=== PATIENT | female | born 1955 | race Caucasian/White ===

== ENCOUNTER 2020-12-05 06:34 | Day surgery (SDC) | payer OTHER ==
[~2020-12-05 06:34] MED LIST: Lactated Ringers 1,000 ML IV SCH
[2020-12-05] MEDS ORDERED: Lidocaine 2% 5 ML SDV ONE (06:48)
[2020-12-05] MEDS ORDERED: Glycopyrrolate 0.2 MG/ML SDV ONE (06:48)
[2020-12-05] MEDS ORDERED: Propofol 200 MG/20 ML SDV ONE ×2 (06:48→08:42)
[2020-12-05] MEDS ORDERED: Midazolam 1 MG/ML 2 ML SDV ONE (06:48)
[2020-12-05] MEDS ORDERED: fentaNYL 100 MCG/2 ML SDV ONE (06:48)
--- NOTE | 2020-12-05 07:11 | PCM.PREANE ---
Preanesthetic Assessment - Anesthesia/Transfusion/Family Hx Type of Anesthesia Reaction: Other (see below) (delayed emergence) Family History of Anesthesia Reaction: No Transfusion History: No Prior Transfusion(s) - Review of Systems General: No Symptoms Pulmonary: No Symptoms Cardiovascular: No Symptoms Gastrointestinal: No Symptoms Neurological: No Symptoms Other: Reports: None - Physical Assessment NPO Status Date: 12/12/20 NPO Status Time: 05:00 Height: 1.65 m Weight: 88.904 kg ASA Class: 2E Mental Status: Alert & Oriented x3 Airway Class: Mallampati = 2 Dentition: Reports: Edentulous Thyro-Mental Finger Breadths: 3 Mouth Opening Finger Breadths: 3 ROM/Head Extension: Full Lungs: Clear to Auscultation, Normal Respiratory Effort Cardiovascular: Regular Rate, Regular Rhythm - Allergies Allergies/Adverse Reactions: Allergies Allergy/AdvReac Type Severity Reaction Status Date / Time morphine Allergy Nausea and Verified 12/01/20 12:14 Vomiting - Blood Blood Available: No - Acknowledgements Anesthesia Type Planned: MAC (The patient understands and accepts the anesthetic risks and benefits of MAC. All questions answered. Consent signed. ) Pt an Appropriate Candidate for the Planned Anesthesia: Yes Alternatives and Risks of Anesthesia Discussed w Pt/Guardian: Yes Pt/Guardian Understands and Agrees with Anesthesia Plan: Yes PreAnesthesia Questionnaire HEENT History: Reports: Other (See Below) Other HEENT History: reading glasses, top and bottom denture Cardiovascular History: Reports: High Cholesterol, Hypertension Respiratory History: Reports: COPD (used inhaler 2 days ago. mild copd), Other (See Below) (USES OXYGEN AT BEDTIME since recovery from COVID 19) Gastrointestinal History: Reports: Colon Polyp, GERD (uncontrolled-having an egd to evaluate this today.), Hepatitis Other Gastrointestinal History: occasional diarrhea, hx hepatitis C, 25 years ago - states she was told that her body rid itself of it and she did not need medication Genitourinary History: Reports: Renal Calculus [employer] History: Reports: Musculoskeletal History: Reports: Arthritis, Fracture Other Musculoskeletal History: hx fx arm Neurological History: Reports: CVA, Neuropathy, Peripheral Other Neuro History: stroke 2019 years ago, affected her vision & balance, "better now" , migraines following her stroke, but states is better now also Psychiatric History: Reports: Anxiety, Depression Endocrine/Metabolic History: Reports: Obesity/BMI 30+ (bmi 32) Hematologic History: Reports: None Immunologic History: Reports: None Oncologic (Cancer) History: Reports: None Dermatologic History: Reports: None - Infectious Disease History Infectious Disease History: Reports: Other (See Below) Other Infectious Disease History: positive for COVID on Aug 03, 2020, was hospitalized x23 days - Past Surgical History Head Surgeries/Procedures: Reports: None HEENT Surgical History: Reports: None Cardiovascular Surgical History: Reports: None Respiratory Surgical History: Reports: None GI Surgical History: Reports: Cholecystectomy, Colonoscopy Female Surgical History: Reports: Tubal Ligation Endocrine Surgical History: Reports: None Neurological Surgical History: Reports: None Musculoskeletal Surgical History: Reports: Other (See Below) Other Musculoskeletal Surgeries/Procedures:: excision ganglion cyst-left wrist Oncologic Surgical History: Reports: None Dermatological Surgical History: Reports: None - SUBSTANCE USE Tobacco Use Status *Q: Former Tobacco User (quit 2 years ago.) Tobacco Use Within Last Twelve Months: No Days Per Week of Alcohol Use: 0 Recreational Drug Use History: No - HOME MEDS Home Medications: Home Meds Benzonatate [Tessalon Perle] 100 mg PO TID PRN 12/01/20 [History] Cholecalciferol (Vitamin D3) [Vitamin D3] 2,000 units PO DAILY 12/01/20 [History] Esomeprazole Magnesium 40 mg PO BEDTIME 12/01/20 [History] FLUoxetine HCl [Fluoxetine HCl] 40 mg PO DAILY 12/01/20 [History] Ferrous Sulfate 325 mg PO DAILY 12/01/20 [History] Gabapentin [Neurontin] 300 mg PO BEDTIME PRN 12/01/20 [History] LORazepam [Lorazepam] 0.5 mg PO ASDIRECTED PRN 12/01/20 [History] Losartan Potassium 25 mg PO DAILY 12/01/20 [History] Metaxalone 800 mg PO DAILY 12/01/20 [History] Multivit-Min/FA/Lycopen/Lutein [Centrum Silver Tablet] 1 tab PO DAILY 12/01/20 [History] Potassium Chloride 10 meq PO DAILY 12/01/20 [History] QUEtiapine Fumarate [Seroquel] 25 mg PO BEDTIME 12/01/20 [History] Topiramate 50 mg PO BEDTIME 12/01/20 [History] amLODIPine [Norvasc] 5 mg PO DAILY 12/01/20 [History] atorvaSTATin Calcium [Atorvastatin Calcium] 40 mg PO DAILY 12/01/20 [History]
[2020-12-05] MEDS ORDERED: fentaNYL 100 MCG/2 ML SDV IVPUSH PRN (08:22)
[2020-12-05] MEDS ORDERED: Atropine 0.1 MG/ML 10 ML Syringe IVPUSH PRN ×2 (08:22)
[2020-12-05] MEDS ORDERED: EPINEPHrine 1:10,000 1 MG/10 ML Syringe IVPUSH PRN (08:22)
[2020-12-05] MEDS ORDERED: 50% Dextrose in Water 50 ML Syringe IVPUSH PRN (08:22)
[2020-12-05] MEDS ORDERED: Naloxone 0.4 MG/ML Syringe IVPUSH PRN (08:22)
[2020-12-05] MEDS ORDERED: Albuterol 0.083% 2.5 MG/3 ML Neb Soln NEB PRN (08:22)
[2020-12-05] MEDS ORDERED: Lactated Ringers 1,000 ML IV SCH (09:00)
--- NOTE | 2020-12-05 09:02 | PCM.OPNOTE ---
- General Post-Op/Procedure Note Date of Surgery/Procedure: 12/05/20 Operative Procedure(s): Esophagogastroduodenoscopy with gastric biopsy. Colonoscopy with snare, and cold polypectomies from the sigmoid colon and rectum. Pre Op Diagnosis: Dysphagia. Personal history of colon polyps. Post-Op Diagnosis: Moderate chronic gastritis. Sigmoid and rectal polyps. Anesthesia Technique: MAC (ASA II) Primary Surgeon: Florentino Lemus Condition: Good Free Text/Narrative:: DICTATION [id number] CPT CODE [id number]
--- NOTE | 2020-12-05 09:20 | PCM.POSTAN ---
POST ANESTHESIA ASSESSMENT - VITAL SIGNS Vital Signs: Last Vital Signs Temp 36.1 C 12/05/20 07:27 Pulse 71 12/05/20 09:11 Resp 18 12/05/20 09:11 BP 132/81 12/05/20 09:11 Pulse Ox 95 12/05/20 09:11 - RESPIRATORY Respiratory Status: Respiratory Rate WNL - CARDIOVASCULAR CV Status: Pulse Rate WNL - GASTROINTESTINAL GI Status: No Symptoms - POST OP HYDRATION Hydration Status: Adequate & Stable
--- NOTE | 2020-12-05 09:35 | OR ---
SURGEON: Florentino Lemus M.D. DATE OF PROCEDURE: 12/05/2020 OPERATION PERFORMED: Colonoscopy with snare sigmoid colon polypectomy and sigmoid and rectal cold polypectomy. PRIMARY SURGEON: Florentino Lemus M.D. ANESTHESIA: MAC. ASA CLASSIFICATION: III. PREOPERATIVE DIAGNOSIS: Personal history of colon polyps. POSTOPERATIVE DIAGNOSIS: Sigmoid and rectal polyps. DESCRIPTION OF PROCEDURE: With the patient having completed upper GI endoscopy, she was maintained in the left lateral decubitus position. The colonoscope was inserted into the rectum and advanced with minimal difficulty to the cecum. The cecum was identified by internal landmarks and external pressure. The colonoscope was retroflexed to visualize the ascending colon from below, then straightened, and slowly withdrawn. The cecum, ascending colon, hepatic flexure, transverse colon, splenic flexure, and descending colon were very well visualized. No tumors, polyps, diverticula, or angiodysplastic changes were noted anywhere in that segment of the colon. The patient did have a couple of small polyps in the sigmoid colon that were removed with the cold biopsy forceps. A larger polyp required snare polypectomy from the proximal rectum. The polyp was large enough that the scope had to be removed to recover the polyp. The scope was then reinserted to just above the polypectomy site. The polypectomy site was noted to be dry. A fourth small polyp was encountered in the rectum and also removed with cold biopsy forceps. Once the colonoscope was withdrawn to the distal rectum, it was retroflexed to visualize the anal orifice from above. No tumors, polyps, or acute hemorrhoidal changes were noted. The colonoscope was then straightened, the rectum aspirated, and the colonoscope removed. The patient tolerated the procedure well and was taken to recovery room in stable condition. JAYCEE / MARCELINO /[id number]
--- NOTE | 2020-12-05 09:41 | OR ---
SURGEON: Florentino Lemus M.D. DATE OF PROCEDURE: 12/05/2020 OPERATION PERFORMED: Esophagogastroduodenoscopy with gastric biopsy. ANESTHESIA: MAC. ASA CLASSIFICATION: III. PREOPERATIVE DIAGNOSIS: Dysphagia. POSTOPERATIVE DIAGNOSIS: Moderate chronic gastritis without ulceration. DESCRIPTION OF PROCEDURE: The patient was taken to the endoscopy room, positioned on the endoscopy table in the left lateral decubitus position. Time-out was called for appropriate identification of the patient and procedure. Monitored anesthesia care was provided. The bite block was placed between the patient's teeth. The gastroscope was inserted through the bite block and advanced without difficulty through the esophagus and stomach into the duodenum where examination was now carried out in a retrograde fashion. The duodenum showed no acute inflammatory changes or ulcerations. The stomach did show [id number] gastritis. No ulcerations were noted. Antral biopsies were obtained to look for the presence of Helicobacter pylori. The gastroscope was retroflexed to visualize the proximal stomach. No mid or proximal lesions were identified. The greater curvature and lesser curvatures were well visualized. Again, no tumors, polyps, or ulcerations were noted. The GE junction was well defined and showed no acute inflammatory changes or ulcerations. The esophagus demonstrated good contractility. No mid or proximal lesions were identified and there was no stricture. I did not see any significant spasm. The vocal cords were briefly visualized as the scope was withdrawn and noted to move symmetrically. The gastroscope was then removed with the patient having tolerated this portion of the procedure well. Following colonoscopy, she was taken to recovery room in stable condition. JAYCEE / MARCELINO /[id number]
--- NOTE | 2020-12-05 10:19 | PCM48HPAN ---
Post Anesthesia Note - EVALUATION WITHIN 48HRS OF ANESTHETIC Vital Signs in Normal Range: Yes Patient Participated in Evaluation: Yes Respiratory Function Stable: Yes Airway Patent: Yes Cardiovascular Function Stable: Yes Hydration Status Stable: Yes Pain Control Satisfactory: Yes Nausea and Vomiting Control Satisfactory: Yes Mental Status Recovered: Yes Vital Signs: Last Vital Signs Temp 36.1 C 12/05/20 07:27 Pulse 71 12/05/20 09:11 Resp 18 12/05/20 09:11 BP 132/81 12/05/20 09:11 Pulse Ox 95 12/05/20 09:11 - COMMENTS/OBSERVATIONS Free Text/Narrative:: The patient wants to go home. She has no complaints at this time. SpO2 at baseline 96%, lungs ctab. There were no apparent anesthetic complications at this time. Told patient to use her oxygen tonight. Discharge home per criteria.
== END 2020-12-05 10:28 | disposition home or self-care (01) ==
LOC: MW.SDS 06:34
PROVIDERS: ATTEND Surgery
DX: D12.7 Benign neoplasm of rectosigmoid junction (principal); D12.5 Benign neoplasm of sigmoid colon; K29.50 Unspecified chronic gastritis without bleeding; I10 Essential (primary) hypertension; E78.00 Pure hypercholesterolemia, unspecified; J44.9 Chronic obstructive pulmonary disease, unspecified; E66.9 Obesity, unspecified; Z68.32 Body mass index [BMI] 32.0-32.9, adult; Z88.6 Allergy status to analgesic agent; Z87.891 Personal history of nicotine dependence; Z86.16 Personal history of COVID-19; Z87.442 Personal history of urinary calculi; Z86.73 Personal history of transient ischemic attack (TIA), and cerebral infarction without residual deficits; Z79.899 Other long term (current) drug therapy; Z98.890 Other specified postprocedural states
CPT/HCPCS: 43239; 45380; 45385; J2704; J3490; J7120; 88305; 88312; J2250; J3010